=== PATIENT | male | born 1965 | race Hispanic/Latino ===

== ENCOUNTER 2017-08-11 21:22 | Emergency (ER) | payer OTHER ==
[2017-08-11] MEDS ORDERED: TDAP Vaccine 0.5 mL Syr IM ONE (22:27)
[2017-08-11] MEDS ORDERED: Lidocaine 1%/Epinephrine 1:100000 30 ml vial INJ STA (22:27)
--- NOTE | 2017-08-11 22:34 | ED PDOC ---
Arrival/HPI - General Chief Complaint: Abnormal Skin Integrity Time Seen by Provider: 08/11/17 22:22 Historian: Patient - History of Present Illness Narrative History of Present Illness (Text): 08/11/17 22:25 A 51 year old male, whose past medical history includes Tourette's syndrome and GERD, presents to the emergency department complaining of head injury s/p fall. Patient reports he was ice skating backwards, tripped, and hit the back of his head. Notes having experienced questionable LOC and currently has mild dizziness. Patient denies any nausea, vomiting, visual changes, or any other complaints at this time. No PMD Symptom Onset: Sudden Symptom Course: Improving Past Medical History - Provider Review Nursing Documentation Reviewed: Yes - Infectious Disease Hx of Infectious Diseases: None - Cardiac Hx Cardiac Disorders: No - Pulmonary Hx Respiratory Disorders: No - Neurological Hx Neurological Disorder: Yes Other/Comment: Turrette's - HEENT Hx HEENT Disorder: No - Renal Hx Renal Disorder: No - Endocrine/Metabolic Hx Endocrine Disorders: No - Hematological/Oncological Hx Blood Disorders: No - Integumentary Hx Dermatological Disorder: No - Musculoskeletal/Rheumatological Hx Musculoskeletal Disorders: No - Gastrointestinal Hx Gastrointestinal Disorders: Yes Hx Gastroesophageal Reflux: Yes - Genitourinary/Gynecological Hx Genitourinary Disorders: No - Psychiatric Hx Psychophysiologic Disorder: No Hx Substance Use: No - Anesthesia Hx Anesthesia: No Family/Social History - Physician Review Nursing Documentation Reviewed: Yes Family/Social History: No Known Family HX Smoking Status: Never Smoked Hx Alcohol Use: No Hx Substance Use: No Allergies/Home Meds Allergies/Adverse Reactions: Allergies Penicillins Allergy (Verified 08/11/17 21:40) ANAPHYLAXIS Home Medications: Home Meds Medication Instructions Recorded Confirmed Citalopram Hydrobromide [Celexa] 30 mg PO DAILY 08/11/17 08/11/17 Esomeprazole Magnesium [Nexium 20 mg PO DAILY 08/11/17 08/11/17 24Hr] Topiramate [Topamax] 75 mg PO DAILY 08/11/17 08/11/17 Review of Systems - Physician Review All systems were reviewed & negative as marked: Yes - Review of Systems Constitutional: Other (head injury s/p fall) Eyes: absent: Vision Changes Gastrointestinal: absent: Nausea, Vomiting Neurological: Dizziness (mild), Other (questionable LOC) Physical Exam Vital Signs Reviewed: Yes Vital Signs Temp Pulse Resp BP Pulse Ox 08/12/17 00:14 98.2 F 76 17 145/72 98 08/11/17 22:57 74 17 149/90 96 08/11/17 21:25 97.8 F 80 16 166/102 H 97 Temperature: Afebrile Blood Pressure: Hypertensive Pulse: Regular Respiratory Rate: Normal Appearance: Positive for: Well-Appearing Pain Distress: None Mental Status: Positive for: Alert and Oriented X 3 - Systems Exam Head: Present: Laceration (1.5 cm laceration to posterior aspect of head; no active bleeding) Pupils: Present: PERRL Extroacular Muscles: Present: EOMI Conjunctiva: Present: Normal Neck: Present: Normal Range of Motion Respiratory/Chest: Present: Clear to Auscultation, Good Air Exchange. No: Respiratory Distress, Accessory Muscle Use Cardiovascular: Present: Regular Rate and Rhythm, Normal S1, S2. No: Murmurs Abdomen: Present: Normal Bowel Sounds. No: Tenderness, Distention, Peritoneal Signs Back: Present: Normal Inspection Upper Extremity: Present: Normal Inspection. No: Cyanosis, Edema Lower Extremity: Present: Normal Inspection. No: Edema Neurological: Present: GCS=15, CN II-XII Intact, Speech Normal Skin: Present: Warm, Dry, Normal Color. No: Rashes Psychiatric: Present: Alert, Oriented x 3, Normal Insight, Normal Concentration Medical Decision Making ED Course and Treatment: 08/11/17 22:27 Impression: 51 year old male with head injury s/p fall. Physical exam shows 1.5 cm laceration to posterior aspect of head and no active bleeding. Plan: -- Head CT -- Lidocaine -- Booxstrix Vaccine -- Reassess and disposition Progress Notes: 08/11/2017 23:[address] FINDINGS: Brain: Mild atrophy. No intracranial hemorrhage. No mass. Dilated perivascular space vs chronic lacunar infarct about LEFT basal ganglia. no edema. Ventricles: No hydrocephalus. Bones/joints: No acute fracture. Soft tissues: Parietal soft tissue swelling. Sinuses: Scattered minimal mucosal thickening. Mastoid air cells: No mastoid effusion. Orbits: Unremarkable as visualized. IMPRESSION: 1. No intracranial hemorrhage. 2. Incidental/non-acute findings are described above. Dictator: Mikal Hahn MD 08/12/17 23:30 Stitched laceration using 4 delmis and Lidocaine 1% with epi. - RAD Interpretation Radiology Orders: 08/11/17 22:27 HEAD W/O CONTRAST [CT] Stat - Medication Orders Current Medication Orders: Discontinued Medications Lidocaine/Epinephrine (Lidocaine 1%/Epinephrine 1:[id number] 30 Ml) 5 ml INJ STAT STA Stop: 08/11/17 22:28 Last Admin: 08/11/17 23:19 Dose: Tetanus/Reduced Diphtheria/Acell Pertussis (Boostrix Vaccine Inj) 0.5 ml IM .ONCE ONE Stop: 08/11/17 22:28 Last Admin: 08/11/17 22:45 Dose: 0.5 ml MAR Immunization Data Document 08/11/17 22:45 IT (Rec: 08/11/17 22:45 IT [id number]) Immunization Data Vaccine Information Sheet Given Yes Immunization Registry Document 08/11/17 22:45 IT (Rec: 08/11/17 22:45 IT [id number]) Immunization Registry Consent Date 08/11/17 - Scribe Statement The provider has reviewed the documentation as recorded by the Iesha Mcintyre Provider Scribe Attestation: All medical record entries made by the Scribe were at my direction and personally dictated by me. I have reviewed the chart and agree that the record accurately reflects my personal performance of the history, physical exam, medical decision making, and the department course for this patient. I have also personally directed, reviewed, and agree with the discharge instructions and disposition. Disposition/Present on Arrival - Present on Arrival Any Indicators Present on Arrival: No History of DVT/PE: No History of Uncontrolled Diabetes: No Urinary Catheter: No History of Decub. Ulcer: No History Surgical Site Infection Following: None - Disposition Have Diagnosis and Disposition been Completed?: Yes Diagnosis: Scalp laceration Disposition: HOME/ ROUTINE Disposition Time: 23:00 Condition: IMPROVED Discharge Instructions (ExitCare): Concussion (ED), Head Injury (ED), Staple Care (ED) Additional Instructions: Thank you for letting us take care of you today. The emergency medical care you received today was directed at your acute symptoms. If you were prescribed any medication, please fill it and take as directed. It may take several days for your symptoms to resolve. Return to the Emergency Department if your symptoms worsen, do not improve, or if you have any other problems. Please contact your doctor or call one of the physicians/clinics you have been referred to that are listed on the Patient Visit Information form that is included in your discharge packet. Bring any paperwork you were given at discharge with you along with any medications you are taking to your follow up visit. Our treatment cannot replace ongoing medical care by a primary care provider (PCP) outside of the emergency department. Thank you for allowing the [facility] team to be part of your care today. You can take tylenol or ibuprofen if you have any pain. Follow up with your doctor in 1-2 days for re-evaluation and further management. Forms: [employer] (Y[place]i)
[2017-08-11 22:57] VITALS: RESP 17
--- NOTE | 2017-08-11 23:17 | CT ---
EXAM: CT Head Without Intravenous Contrast CLINICAL HISTORY: 51 years old, male; Injury or trauma; Fall; Initial encounter; Laceration; Without residual foreign body; Head, generalized; Additional info: R/O ich and FX TECHNIQUE: Axial computed tomography images of the head/brain without intravenous contrast. All CT scans at this facility use one or more dose reduction techniques, viz.: automated exposure control; ma/kV adjustment per patient size (including targeted exams where dose is matched to indication; i.e. head); or iterative reconstruction technique. Coronal and sagittal reformatted images were created and reviewed. COMPARISON: No relevant prior studies available. FINDINGS: Brain: Mild atrophy. No intracranial hemorrhage. No mass. Dilated perivascular space vs chronic lacunar infarct about LEFT basal ganglia. No edema. Ventricles: No hydrocephalus. Bones/joints: No acute fracture. Soft tissues: Parietal soft tissue swelling. Sinuses: Scattered minimal mucosal thickening. Mastoid air cells: No mastoid effusion. Orbits: Unremarkable as visualized. IMPRESSION: 1. No intracranial hemorrhage. 2. Incidental/non-acute findings are described above.
[2017-08-12 00:21] VITALS: BP 145/72; PULSE 76; TEMP 98.2; O2SAT 98
== END 2017-08-12 00:28 | disposition home or self-care (01) ==
LOC: ED 21:22
DX: S01.01XA Laceration without foreign body of scalp, initial encounter (principal); W00.0XXA Fall on same level due to ice and snow, initial encounter; Y93.21 Activity, ice skating; Y92.89 Other specified places as the place of occurrence of the external cause; Z23 Encounter for immunization